=== PATIENT | male | born 1945 | race Caucasian/White ===

== ENCOUNTER 2020-03-04 06:27 | Emergency (ER) | payer MEDICARE, SELFPAY ==
[2020-03-04] VITALS (10 sets, daily range): BP systolic 73–109; BP diastolic 25–55; PULSE 116–147; RESP 27–42; TEMP 36.8; O2SAT 73–99
--- NOTE | ~2020-03-04 | XR_ITS ---
XR chest 1V 03/04/2020 07:37 Indication: Mental status and shortness of breath Procedure: AP view of the chest Comparison: No prior studies for comparison. Findings: Heart size is normal. Left lung clear. There is patchy right-sided airspace disease, most c onfluent in the right lung base. No pleural effusion or pneumothorax. There are cholecystectomy clips . Impression: 1: Patchy right-sided airspace disease, compatible with pneumonia. Reviewed, dictated and finalized at location A. Impression: 1: Patchy right-sided airspace disease, compatible with pneumonia.
--- NOTE | ~2020-03-04 | CT_ITS ---
EXAMINATION: CT brain wo con DATE: 03/04/2020 07:30 INDICATION: Altered mental status TECHNIQUE: Computed tomography (CT) of the head was performed without intravenous contrast. The dose- length product was 605.33 mGy-cm. Automated exposure control and iterative reconstruction technique w ere employed. COMPARISON: No prior studies for comparison. FINDINGS: Mild atrophy. There are scattered moderate periventricular and subcortical white matter leena nges, most likely related to small vessel ischemic disease (microangiopathy). No ventriculomegaly or midline shift. Basilar cisterns are patent. No acute intracranial hemorrhage, infarction, mass or mas s effect. There is a focal calcification of the ramon. Paranasal sinuses and mastoids are pneumatized. No depressed skull fractures. Small chronic lacunar infarction left caudate nucleus. IMPRESSION: 1. No acute intracranial abnormality. 2: Chronic left lacunar infarction. 2: Chronic age-related findings. Reviewed, dictated and finalized at location A.
--- NOTE | 2020-03-04 06:37 | ECG_ITS ---
Measurements Intervals [place] Rate: 114 P: 2 HI: 116 QRS: -8 QRSD: 71 T: 59 QT: 322 QTc: 444 Interpretive Statements SINUS TACHYCARDIA ABNORMAL ECG Electronically Signed On 03-04-2020 6:48:32 CDT by John Bennett D.O.
[2020-03-04 06:40] LABS: Glucose Point of Care 269 (65-105)
--- NOTE | 2020-03-04 06:52 | PC.NURSE ---
spoke w/ pt's Teresa home phone [phone] pt's daughters number [phone]
[2020-03-04 07:05] LABS: Basophils Absolute Auto 0.1 K/mm3 (0.0-0.1); Basophils Percent Auto 0.5 % (0.2-1.2); Eosinophils Percent Auto 0.1 % (0-4.4); Hematocrit 35.3 % (42.0-52.0); Immature Granulocyte Absolute 0.43 K/mm3 (0.00-0.031); Immature Granulocyte Percent A 2.7 % (0-0.5); Lymphocytes Absolute Auto 0.47 K/mm3 (0.9-3.2); Lymphocytes Percent Auto 2.9 % (18.3-44.2); Mean Corpuscular HGB Conc 31.2 g/dl (32-36); Mean Corpuscular Hemoglobin 18.8 pg (26-34); Mean Corpuscular Volume 60.4 fl (80-100); Mean Platelet Volume 10.7 fl (7.4-10.4); Monocytes Absolute Auto 1.1 K/mm3 (0.1-0.6); Monocytes Percent Auto 6.7 % (2.6-8.5); Neutrophils Percent Auto 87.1 % (45.5-73.1); Nucleated Red Blood Cells Absolute Auto 0.1 K/mm3 (0.0-0.012); Nucleated Red Blood Cells Perc 0.7 % (0.0-0.2); Platelet Count Result 345 k/mm3 (150-375); Red Blood Count 5.84 M/mm3 (4.6-6.20); Red Cell Distribution Width 18.7 % (11.5-14.5); White Blood Count 16.1 K/mm3 (4.5-10.0)
--- NOTE | 2020-03-04 07:06 | ED.AMS ---
HPI - Altered Mental Status General Chief Complaint: Altered Mental Status Stated Complaint: ams Time Seen by Provider: 03/04/20 07:04 Source: EMS Mode of arrival: EMS Limitations: altered mental status History of Present Illness HPI narrative: Pt is a 74 yo male who presents for evaluation from [facility] for altered mental status. Pt reportedly with a history of metastatic cancer and was not able to converse this morning and facility sent him to our hospital for evaluation. Pt without prior visits to this hospital aside from visit in 2008 for hematuria. Per family, patient recently admitted to [facility]. He is a full code based on care facility. Additional history unable to be obtained as patient is not conversant, no family present, no paperwork was sent from facility. Related Data Allergies Allergy/AdvReac Type Severity Reaction Status Date / Time NKDA Allergy Mild Unknown Uncoded 03/04/20 06:42 Review of Systems Review of Systems: ROS unobtainable: Yes unobtainable due to mental status PMFSH Past Medical History Medical History (Updated 03/04/20 @ 07:48 by Bailey Randall MD) Anxiety Essential hypertension Hypercholesterolemia Neuroendocrine carcinoma Severe malnutrition Type 2 diabetes mellitus Exam Narrative: Exam Narrative: GENERAL: Alert, unable to converse HEAD: Normocephalic, atraumatic. EYES: PERRLA and EOMI. ENT: Nares clear, no rhinorrhea or epistaxis. Mucous membranes dry NECK: Supple. CHEST: Tachypneic, hypoxemic, coarse breath sounds bilaterally, use of accessory muscles to breathe HEART: Tachycardic rate, sinus rhythm ABDOMEN:Non distended, non tender EXTREMITIES: Normal range of motion. No edema. SKIN: Pale, Warm, dry, no rash. NEURO: Alert, able to follow simple commands, no focal deficits observed, no facial droop, carbonation equipment tender strength 5/5 bilaterally, diminished strength bilateral lower extremities Course Course Emergency Course: Patient is a 74-year-old male who presented to our emergency department for evaluation of altered mental status. At the time of initial assessment, airway is intact, breathing is notable for tachypneic, hypoxemic patient and he was placed on oxygen via nasal cannula. Patient is tachycardic and borderline hypotensive. He is afebrile. No paperwork was initially sent with the patient, did obtain a history of neuroendocrine/metastatic cancer with recent treatment at [facility] on the phone from the patient's . Given concern for sepsis, septic shock, patient was given IV antibiotics as well as a 30 mL/kg fluid bolus. Also cannot entirely rule out coronavirus given the patient's hypoxemia, evidence of a infiltrate on chest x-ray, thus patient was placed on airborne precautions as well. Patient with a urinary tract infection. He is hyperkalemic with a severely elevated BUN and acute kidney injury, consistent with dehydration. We did treat the hyperkalemia. No sign of acute intracranial abnormality found on CT. Patient likely has septic shock from pneumonia and UTI. Patient's came to the hospital, we discussed the patient's severity of illness, existing medical conditions, and the patient's has made the decision to make him a hospice patient. They do not want CPR, central line or pressors, or intubation. Hospice was called to the emergency department. Pt to be admitted to hospice. Vital Signs Vital signs: Vital Signs Temperature 36.8 C 03/04/20 06:25 Pulse Rate 116 H 03/04/20 06:25 Respiratory Rate 31 H 03/04/20 06:25 Blood Pressure 109/55 L 03/04/20 06:25 Pulse Oximetry 93 03/04/20 06:25 Temperature 36.8 C 03/04/20 06:25 Pulse Rate 123 H 03/04/20 09:26 Respiratory Rate 28 H 03/04/20 09:26 Blood Pressure 78/42 L 03/04/20 09:26 Pulse Oximetry 75 L 03/04/20 09:26 MDM - Altered Mental Status Differential Diagnosis Differential diagnosis: Likely altered mental status, delirium, hypoglycemia, hyponatr
--- NOTE | 2020-03-04 07:06 | PC.NURSE ---
Spoke to [facility] regarding H&P paperwork so that it is faxed to this ED.
[2020-03-04 07:12] LABS: Hypochromasia 2+ (NORMAL); Ovalocytes 2+ (NORMAL); Platelet Estimate Adequate (Adequate); Polychromasia 1+ (NORMAL); Target Cells 1+ (NORMAL); Tear Drop Cells 2+ (NORMAL)
[2020-03-04 07:14] LABS: Lactic Acid Reflex 2.5 mmol/L (0.7-2.1)
[2020-03-04 07:16] LABS: Alanine Aminotransferase 18 U/L (4-50); Albumin Level 3.4 g/dL (3.5-5.1); Alkaline Phosphatase 187 U/L (38-126); Aspartate Amino Transferase 49 U/L (17-59); Bilirubin,Total 1.9 mg/dL (0.2-1.3); Calcium 7.2 mg/dL (8.4-10.2); Carbon Dioxide 20 mmol/L (22-30); Chloride 100 mmol/L (98-107); Glucose 284 mg/dL (75-110); Potassium 6.6 mmol/L (3.4-5.0); Sodium 137 mmol/L (137-145)
--- NOTE | 2020-03-04 07:23 | PC.NURSE ---
Assumed care of pt. Pt is alert, not responding to verbal stimuli at this time. Pt on tele monitor. EDP at bedside discussing POC.
--- NOTE | 2020-03-04 07:24 | PC.NURSE ---
Pt to CT scan via tele monitor.
[2020-03-04 07:27] LABS: Estimated Glomerular Filt Rate 23
[2020-03-04 07:28] LABS: Blood Urea Nitrogen 131 mg/dL (9-20)
[2020-03-04 07:32] LABS: Ammonia < 9 umol/L (9-30)
[2020-03-04 07:33] LABS: Add Urine Microscopic? YES; Appearance Urine Cloudy (Clear); Bacteria Urine 2+ /hpf; Bilirubin Urine 2+ (Negative); Blood Urine 2+ (Negative); Color Urine Amber (Yellow); Glucose Urine UA 1+ mg/dL (Negative); Hyaline Casts Urine 50+ /lpf; Ketones Urine Negative (Negative); Leukocyte Esterase Ur 3+ LEU/UL (Negative); Mucus Urine Moderate /lpf; Nitrate Urine Negative (Negative); Protein Urine 2+ mg/dL (Negative); RBC Urine 21-50 /hpf (0-2); Specific Grav Ur 1.021 (1.001-1.035); Squamous Epithelial Cell Urine Many /hpf (Few); WBC Urine >75 /hpf
[2020-03-04 07:36] LABS: Alveolar/Arterial O2 Gradient 186.7 mmHg; Base Excess ABG -6.8 mEq/l (+/-2.0); Carboxyhemoglobin 0.5 % THb (0-2.0); Fractional Inspired Oxygen 40 %; HCO3 ABG 16.6 mEq/l (22.0-26.0); Methemoglobin ABG 0.3 %THb (0-1.5); Oxygen Content ABG 15.4 %vol (16.0-22.0); Oxygen Saturation ABG 93.9 % (95.0-100.0); Oxyhemoglobin 90.5 % THb (90.0-100.0); PCO2 ABG 27.1 mmHg (35.0-45.0); PO2 ABG 67.3 mmHg (80.0-100.0); PO2 FiO2 Ratio Arterial Blood 1.68 %; Reduced Hemoglobin 8.7 %THb (0-5.0); Total Hemoglobin 12.1 g/dL (12.0-18.0); pH ABG 7.404 (7.350-7.450)
[2020-03-04 07:41] LABS: INR 1.3; Magnesium 2.5 mg/dL (1.6-2.3); Prothrombin Time 15.6 Seconds (11.1-14.7)
[2020-03-04 07:41] LABS: Lactate Dehydrogenase 514 U/L (313-618)
[2020-03-04 07:42] LABS: Partial Thromboplastin Time 30.3 SECONDS (22.3-36.8)
[2020-03-04] MEDS: ALBUTEROL SULFATE NEB 2.5 MG/0.5 ML INH 10 MG INHALATION (07:42)
[2020-03-04] MEDS: INSULIN HUMAN REGULAR (*BKC) 100 UNITS/ML 10 UNITS IV PUSH (07:46)
[2020-03-04 07:48] LABS: Device NASAL CANNULA; Modified Allen's Test Pass; Site Drawn RIGHT RADIAL
[2020-03-04] MEDS: DEXTROSE 50% 25 GM/50 ML SYRINGE IV PUSH (07:51)
[2020-03-04] MEDS: CALCIUM GLUCONATE 1,000 MG/10 ML VIAL 2000 MG IV PUSH (07:51)
[2020-03-04 07:59] LABS: CRP 26.3 mg/dL (<1.0)
[2020-03-04] MEDS: SODIUM CHLORIDE 0.9% IV 1,600 ML/1,000 ML BAG 999 ML IV CONT (08:23)
--- NOTE | 2020-03-04 08:24 | PC.NURSE ---
Per [facility] EDP pt albuterol tx dc'd (1 hour treatment) and placed on 5 L NC O2.
--- NOTE | 2020-03-04 08:34 | PC.NURSE ---
Per EDP stop NS 1600, only give 1 L NS, 1000MLS infused.
[2020-03-04] MEDS: SODIUM CHLORIDE 0.9% IV 1,000 ML 30 ML (08:43)
--- NOTE | 2020-03-04 08:45 | PCCCNOTE ---
Spoke with spouse, Teresa, a bedside and list of Hospice agency choices was given. Spouse selected [facility]. Phone call was placed to [facility] and this sheet writer spoke with Gamaliel. A nurse from [facility] will evaluate the patient in this ED by 0930 this morning
--- NOTE | 2020-03-04 09:52 | PC.NURSE ---
Georgina from [facility] here to discuss POC w/ pt and spouse.
[2020-03-04 10:01] LABS: Reflex Lactic Acid Yes or No Add Lactic
--- NOTE | 2020-03-04 10:40 | PC.NURSE ---
COVID swab sent to lab by this RN at this time.
--- NOTE | 2020-03-04 10:43 | PC.NURSE ---
Per [facility] EDP tmaara Milian to give pt Morphine 4MG IVP.
[2020-03-04] MEDS: MORPHINE SULFATE 4 MG/ML INJ IV PUSH (10:47)
--- NOTE | 2020-03-04 12:14 | ECG_ITS ---
Measurements Intervals [place] Rate: 131 P: [place]: 0 QRS: -45 QRSD: 118 T: 89 QT: 291 QTc: 429 Interpretive Statements SINUS TACHYCARDIA FREQUENT ATRIAL PREMATURE COMPLEXES LEFT AXIS DEVIATION INTRAVENTRICULAR CONDUCTION DELAY ST-T WAVE ABNORMALITY IN HIGH LATERAL LEADS- CONSIDER ISCHEMIA BASELINE ARTIFACT- AVR, V1, V3-V6 ABNORMAL ECG Electronically Signed On 03-04-2020 13:23:02 CDT by John Bennett D.O.
[2020-03-04 18:39] LABS: SARS-CoV-2 RNA PCR Negative
== END 2020-03-04 11:19 | disposition hospice, inpatient (51) ==
PROVIDERS: General Practice; Emergency Provider Emergency Medicine; PCP Family Medicine
DX: A41.9 Sepsis, unspecified organism (principal); R65.20 Severe sepsis without septic shock; E87.5 Hyperkalemia; N17.9 Acute kidney failure, unspecified; Z20.828 Contact with and (suspected) exposure to other viral communicable diseases; C7A.8 Other malignant neuroendocrine tumors; C79.9 Secondary malignant neoplasm of unspecified site; E11.9 Type 2 diabetes mellitus without complications; I10 Essential (primary) hypertension; E78.00 Pure hypercholesterolemia, unspecified; R41.0 Disorientation, unspecified; R00.0 Tachycardia, unspecified; I49.1 Atrial premature depolarization; I45.9 Conduction disorder, unspecified; R94.31 Abnormal electrocardiogram [ECG] [EKG]
CPT/HCPCS: 36415; 36600; 70450; 71045; 80053; 81001; 82140; 82375; 82728; 82805; 82948; 83050; 83605; 83615; 83735; 84484; 85025; 85055; 85610; 85730; 86140; 87040; 87077; 87086; 87088; 87186; 87635; 93005; 94640; 96361; 96365; 96367; 96375; 99285; C9803; J0131; J0610; J0692; J1815; J2270; J3370; J7030; U0003

== ENCOUNTER 2020-03-04 10:08 | HOS | payer OTHER, MEDICARE, SELFPAY ==
[2020-03-04 11:15] LABS: Glucose Point of Care 411 (65-105)
[2020-03-04 11:38] VITALS: BMI 16.7
[2020-03-04] MEDS: MORPHINE SULFATE 2 MG/ML INJ IV PUSH (12:12)
--- NOTE | 2020-03-04 22:59 | PC.NURSE ---
2009 called out from room reporting patient stopped breathing. RN assessed no BP, Pulse or RR. RN notified VITAS, charge nurse and malt house operator of patient's expiration. Emotional support given to .
--- NOTE | 2020-03-06 16:57 | P.SS_ITS ---
Same Day Admit/Disch: HPI History of Present Illness Chief complaint: respiratory failure Narrative: Vega Ding is a 74 year old male [place] resident with Hx GI cancer who presented to ED with pneumonia, UTI sepsis with shock. Spouse/POA wanted no intervention except comfort care, so patient was admitted to inpatient hospice. [facility] Past Medical History Medical History Anxiety Essential hypertension Hypercholesterolemia Neuroendocrine carcinoma Severe malnutrition Type 2 diabetes mellitus Family History Family History Father No problems noted. Mother No problems noted. Social History Social History Gender identity (if verbalized by the patient): Male Spiritual care concerns: No Exam Narrative: Exam Narrative: prior to exam DS: Summary Hospital Course Reason for hospitalization: palliative care for sepsis Hospital Course: Admitted to inpatient hospice. Medications initiated and patient became comfortable. Patient peacefully. Time Spent with Patient Time attestation: Total time spent providing and/or coordinating discharge services: DS: Discharge Diagnosis Discharge Diagnosis (1) Palliative care by specialist: Code(s): Z51.5 - Encounter for palliative care Status: Acute Assessment and Plan: Required GIP status due to uncontrolled dyspnea necessitating continuous IV morphine for control (2) Sepsis: Qualifiers: Sepsis type: sepsis due to unspecified organism Sepsis acute organ dysfunction status: unspecified Qualified Code(s): A41.9 - Sepsis, unspecified organism Code(s): A41.9 - Sepsis, unspecified organism Status: Acute (3) CAP (community acquired pneumonia): Qualifiers: Laterality: unspecified laterality Qualified Code(s): J18.9 - Pneumonia, unspecified organism Code(s): J18.9 - Pneumonia, unspecified organism Status: Acute (4) UTI (urinary tract infection) due to Enterococcus: Code(s): N39.0 - Urinary tract infection, site not specified; B95.2 - Enterococcus as the cause of diseases classified elsewhere Status: Acute Discharge Plan Discharge Attending physician on discharge: Salvador Hogan Discharging Clinician: Salvador Hogan Anticipated Discharge Date/Time: 03/04/20 20:10 Patient Disposition: Date of admission: 03/04/20 10:08 Primary Care Provider: Justin Hernandez Admitting Provider: Salvador Hogan Interventions: Discharge Disposition Last Done: 03/04/20 20:10 Discharge Date/Time: 03/04/20 20:10 Attending physician on admission: Salvador Hogan
== END 2020-03-04 20:10 | disposition expired | DRG 871 ==
PROVIDERS: Admitting Provider Internal Medicine; PCP Family Medicine; Visit Provider Internal Medicine
DX: A41.9 Sepsis, unspecified organism (principal); J18.9 Pneumonia, unspecified organism; E43 Unspecified severe protein-calorie malnutrition; N39.0 Urinary tract infection, site not specified; Z68.1 Body mass index [BMI] 19.9 or less, adult; Z51.5 Encounter for palliative care; B95.2 Enterococcus as the cause of diseases classified elsewhere; I10 Essential (primary) hypertension; E78.00 Pure hypercholesterolemia, unspecified; E11.9 Type 2 diabetes mellitus without complications; F41.9 Anxiety disorder, unspecified; Z85.858 Personal history of malignant neoplasm of other endocrine glands
CPT/HCPCS: A9270; J2270